=== PATIENT | female | born 1965 | race Caucasian/White ===

== ENCOUNTER 2022-03-08 11:55 | Observation (INO) ==
[2022-03-08] MEDS ORDERED: Isovue-370 500 ML BOTTLE IVP ONE (14:07)
[2022-03-08] MEDS ORDERED: MOM Conc 10 ML UD.LIQ PO PRN (14:07)
[2022-03-08] MEDS ORDERED: Melatonin 3 MG TABLET PO PRN (14:07)
[2022-03-08] MEDS ORDERED: Ondansetron ODT 4 MG TAB.RAPDIS SL PRN (14:07)
[2022-03-08] MEDS ORDERED: Naloxone 0.4 MG/ML INJ IVP PRN (14:07)
[2022-03-08] MEDS ORDERED: Mag Hydrox/Al Hydrox/Simeth 30 ML UDC PO PRN (14:07)
[2022-03-08] MEDS ORDERED: Acetaminophen 325 MG TABLET PO PRN (14:12)
[2022-03-08] MEDS ORDERED: Perflutren Lipid Microsphere 1.3 ML in 0.9 % Sodium Chloride 8.7 ML IVP PRN (14:38)
[2022-03-08] MEDS: Nicotine 21 MG PATCH.TD24 TD SCH (15:34)
[2022-03-08 16:44] LABS: Amphetamine Screen,Urine Positive ng/mL (Cutoff=1000); Barbiturate Screen,Urine Negative ng/mL (Cutoff=200); Benzodiazepines Screen,Urine Negative ng/mL (Cutoff=200); Cannabinoid Screen,Urine Negative ng/mL (Cutoff = 50); Cocaine Screen,Urine Negative ng/mL (Cutoff= 300); Opiate Screen,Urine Negative ng/mL (Cutoff=300); Phencyclidine Screen,Urine Negative ng/mL (Cutoff=25)
[2022-03-08] MEDS ORDERED: Ibuprofen 600 MG TABLET PO ONE (22:27)
[2022-03-09 02:32] VITALS: TEMP 97.9
[2022-03-09] MEDS ORDERED: *HR* Enoxaparin 40 MG/0.4 ML SYRINGE SQ SCH (06:00)
[2022-03-09 06:42] LABS: INR 1.1; Prothrombin Time 11.7 Seconds (9.4-12.1)
[2022-03-09 06:59] LABS: Alanine Aminotransferase 15 Units/L (7-52); Albumin 3.9 g/dL (3.5-5.7); Albumin/Globulin Ratio 1.6 (1.1-2.2); Alkaline Phosphatase 77 Units/L (34-104); Aspartate Amino Transferase 15 Units/L (13-39); BUN/Creatinine Ratio 22 (6-26); Bilirubin,Total 0.4 mg/dL (0.3-1.0); Blood Urea Nitrogen 11 mg/dL (6-20); Calcium 8.7 mg/dL (8.6-10.3); Carbon Dioxide 26 mEq/L (23-29); Chloride 106 mEq/L (98-107); Chol/HDL Ratio 3.3 (0-4.9); Cholesterol 173 mg/dL (< 200); Globulin 2.5 g/dL (2.4-3.5); Glucose 95 mg/dL (70-105); HDL Cholesterol 52 mg/dL (40-59); LDL Cholesterol,Calculated 95 mg/dL (< 100); Osmolality,Calculated 285 (280-300); Potassium 3.7 mEq/L (3.5-5.1); Sodium 138 mEq/L (136-145); Total Protein 6.4 g/dL (6.4-8.9); Triglycerides 130 mg/dL (< 150); Troponin I < 0.03 ng/mL (< 0.04); eGFR For African Americans > 60 (> 60); eGFR For Non-African Americans > 60 (> 60)
[2022-03-09 07:03] VITALS: BP 150/93; PULSE 61; O2SAT 98
[2022-03-09] MEDS: Nicotine 21 MG PATCH.TD24 TD SCH (08:37)
[2022-03-09] MEDS ORDERED: Aspirin Enteric Coated 81 MG Tablet PO SCH (09:00)
[2022-03-09 09:13] LABS: Estimated Average Glucose 117 mg/dl; Hemoglobin A1C 5.7 %
== END 2022-03-09 11:03 | disposition home or self-care (01) ==
LOC: 3BNU → SUATTDRO 13:09
PROVIDERS: ADMIT Student in an Organized Health Care Education/Training Program; ATTEND Registered Nurse